=== PATIENT | male | born 1970 | race African-American/Black ===

== ENCOUNTER 2017-04-18 16:15 | Inpatient (IN) | payer MEDICAID ==
[~2017-04-18] VITALS: Ht 185.4 cm; Wt 86.2 kg
[~2017-04-18 16:15] MED LIST: ACETAMINOPHEN-1 EAC1 PO; AMLODIPINE; AMLODIPINE BESY10 MG PO; AMLODIPINE PO; ASPIRIN EC81 M1 PO; ASPIRIN81 M2 PO; BIOFREEZE118 ML TP; BYSTOLIC 5 MG5 M1 PO; BYSTOLIC20 MG; CARISOPRODOL 3350 MG PO; CARVEDILOL25 MG PO; COREG25 MG PO; Coreg PO; FLEXERIL PO; HYDRALAZINE 10M10 MG PO; HYDRALAZINE 5050 M1 PO; HYDROCHLOROTH12.5 MG; HYDROCHLOROTHIA25 M1; HYDROCHLOROTHIA25 M1 PO; K-DUR 20 MEQ T20 MEQ PO; KEPPRA 500 MG500 M1 PO; LIDOCAINE VISC100 M1 SWISH&SPIT; LIDODERM 5%1 PATC1 TRANSDERM; LIPITOR 20 MG T20 M1 PO; LISINOPRIL40 MG; LISINOPRIL40 MG PO; LOPERAMIDE 2 MG2 M1 PO; MAGNESIUM400 MG PO; MAXZIDE 75-501 EACH PO; MODAFINIL100 MG PO; NAPROSYN500 MG PO; NEURONTIN600 MG PO; NEXIUM40 MG PO; NORCO 5-325 TA1 EACH PO; NORVASC10 MG PO; PENICILLIN V P500 MG PO; PERCOCET 5-3251 EACH PO; PERCOCET PO; POTASSIUM20 PO; PROCARDIA XL30 MG; ROBAXIN500 MG PO; TEKTURNA HCT 31 EAC1 PO; TYLENOL EXTRA500 MG PO; ZESTORETIC PO; [UNRECOGNIZED DRUG - REMARK]
[2017-04-18] MEDS ORDERED: NEXIUM40 MG PO (19:44)
[2017-04-18 20:00] VITALS: BP 156/93
--- NOTE | 2017-04-19 00:51 | NUR ---
PT ARRIVED ON UNIT AT 1850. VERBAL REPORT TAKEN FROM 3W RN AT SHIFT CHANGE. KERLIX DRESSING TO LEFT UPPER ARM WAS CHANGED JUST PRIOR TO ADMISSION. PT HAS BLISTERS TO LEFT UPPER ARM FROM FALL SUSTAINED AT HOME. PT ADMITTED WITH DX OF RHABDOMOLOSIS. A/O X 4. TOOK MEDS WHOLE ALL AT ONCE WITH WATER. REHAB/ADMISSION TOOL COMPLETED. VOIDS CLEAR/LIGHT YELLOW URINE PER URINAL. DENIES PAIN. DIDN'T WANT TO TAKE SCHEDULED TYLENOL. PT WAS GIVEN A PEROCET JUST PRIOR TO ADMISSION FOR C/O LEFT SIDE PAIN. PT IS LEFT HANDED BUT WRITES WITH HIS RIGHT HAND. PT HAS LEFT HEMIPARESIS FROM A STROKE IN 2016. PT HAS A TENDENCY TO LEAN TO THE RIGHT WHILE LAYING IN BED. 2+ EDEMA NOTED TO LEFT ARM. LEFT ARM ELEVATED ON A PILLOW. A PILLOW PLACED TO RIGHT SIDE TO KEEP PT FROM LEANING. PT C/O SKIN ITCHING AND REQUESTED TO BE CLEANED UP. CANDY BUTCHER GAVE PT A BED BATH AND APPLIED LOTION.
[2017-04-19 04:14] LABS: HEMATOCRIT 33.1 % (42.0-52.0); MCH 30.7 pg (26.0-34.0); MCHC 33.1 g/dL (28.0-37.0); MCV 92.8 fL (80.0-100.0); RBC 3.57 mil/uL (4.50-6.00); RDW-CV 13.4 % (10.5-14.5); WBC 5.6 thou/uL (4.0-11.0)
[2017-04-19 04:18] LABS: CALCIUM 8.1 mg/dL (8.5-10.1); CREATININE 1.3 mg/dL (0.6-1.3); POTASSIUM 3.5 mmol/L (3.5-5.1)
--- NOTE | 2017-04-19 05:17 | NUR ---
USED URINAL X ONE DURING THE NIGHT. RESTED SOUNDLY ALL NIGHT. NO COMPLAINTS VOICED. HOURLY ROUNDING IN PROGRESS. CALL LIGHT WITH REACH.
[2017-04-19 08:15] VITALS: BP 125/80
[2017-04-19 11:29] VITALS: BP 99/64
--- NOTE | 2017-04-19 12:55 | NUR ---
Nutrition: Pt admitted to Rehab with [facility]. H/o HTN, CVA. Wound care for Lt arm.Regular diet, eating >50% of meals, average >75%. Wt in 190s. BG 138, alb 2.6, prealb 18.7. RX: lisinopirl, carvedilol, aspirin. Low risk. will follow pt weekly.
[2017-04-19 13:45] VITALS: BP 105/66
--- NOTE | 2017-04-19 16:32 | NUR ---
SW met with pt to complete initial assessment, introduce self, and SW role on rehab unit. Pt sister present in the room; she plans to return to [place] tomorrow. Pt alert and oriented. Pt lives at home with his mother and his goal is to return home. Pt also has other family support. Pt has a cane. SW to continue to follow to assist with safe dc planning. SW provided welcome packet and consent form; pt was eating at the time and wanted to sign tomorrow. SW to review team conference summary with pt tomorrow after team.
[2017-04-19 17:00] VITALS: BP 102/65
--- NOTE | 2017-04-19 17:51 | NUR ---
ASSUMMED CARE OF PT AT 0730, PT ALERT AND ORIENTED, PT TRANSFERS WITH ASSIST OF 1, GB QUAD CANE, VERY SLOW TO MOVE, CUEING NEEDED, PT VOIDS PER URINAL, PT COMPLAINS OF PAIN IN LEFT SHOULDER, LIDOCAINE PATCH APPLIED, PT DENIED NEED FOR FURTHER MEDICATION, PT TAKING FOOD AND FLUIDS WELL, PT HAS SOME EDEMA IN LEFT ARM, ULTRASOUND DONE TO LEFT ARM WITH NEGATIVE RESULTS, ENCOURAGED PT TO ELEVATE ARM, SLING TO ARM WHEN UP, PT COMPLAINED OF DIZZINESS WITH THERAPY AT 1100, BP 99/64, PULSE 64, PT ALSO COMPLAINED OF SLIGHT NAUSEA, BUT ABLE TO TOLERATE LUNCH WELL, BP RECHECKED THIS PM AND BP REMAINS LOW AT 102/65, PULSE 69, PHYSICIAN CALLED AND ORDER OBTAINED TO HOLD 1700 AND 1830 BP MEDS FOR TONIGHT. DRESSING CHANGED TO LEFT ARM, LARGE FLUID FILLED BLISTER NOTED WELL SEVERAL DRIED BLISTERS, PT HAS FLAT AFFECT, DOES NOT OFFER CONVERSATION BUT DOES ANSWER QUESTIONS, COMPLAINS OF FATIGUE, PARTICIPATED IN ALL THERAPIES, HOURLY ROUNDING COMPLETED, ASSESSMENT COMPLETED, WILL CONTINUE TO MONITER.
[2017-04-19 19:45] VITALS: BP 104/63
--- NOTE | 2017-04-19 20:45 | NUR ---
AWAKENED FOR HS REASSESSMENT AND MED PASS. NO COMPLAINTS VOICED. TOOK MEDS WHOLE ALL AT ONCE WITH WATER. URINAL AND CALL LIGHT WITHIN REACH.
--- NOTE | 2017-04-20 05:15 | NUR ---
SISTER AND DAUGHTER VISITED LAST NIGHT FOR AWHILE. RESTED QUIETLY. NO C/O DISCOMFORT. HOURLY ROUNDING IN PROGRESS.
[2017-04-20 06:16] VITALS: BP 139/80
[2017-04-20 07:15] VITALS: BP 144/79
--- NOTE | 2017-04-20 07:15 | NUR ---
CHANGE OF SHIFT REPORT ASSUMED PATIENT CARE
--- NOTE | 2017-04-20 10:30 | NUR ---
patient with c/o nausea and feels hot at end of pt session bp 118/[address] kelley notified of patients status and order for antimetic and given to patient will continue to monitor
--- NOTE | 2017-04-20 18:30 | NUR ---
patient sitting up wc watching tv c/o l shoulder pain today treated and relieved with oxycodone poor appetite today ate less then 50% of meals flat affect and minimal eyecontact in first half of day, did improve with time spent today up with 1 assist to chair and bed l side weak,lue flaccid in immobilizer,lle weak with brace lue drsg changed today last bm yesterday call light in reach and instruction given
[2017-04-20 20:58] VITALS: BP 123/76
--- NOTE | 2017-04-21 03:15 | NUR ---
ASSUMED CARE @ 1929-04/20-TUE.SITS IN RECLINER WATCHING TV.BRACE IN PLACE LEFT LE.SLING NOT IN USE @ THIS TIME FOR LEFT UE.CHAIR ALARM ALREADY ON @ 1929. GAUZE DRESSING INTACT LEFT UPPER ARM.EDEMA-LEFT UE.LEFT UE-FLACCID& WEAK-LEFT LE FROM OLD STROKE.ON SCHEDULED TYLENOL Q 6 HOURS.ASSISTED TO BED W/ GB & QUAD CANE @ 1944.HOB UP WHEN IN BED.LUE UP ON A PILLOW & HEELS OFF BED BOTH @ 1944. BED ALARM PUT ON @ 1944.NURSE EMPTIES URINAL @ NIGHT.SEE POSITION CHANGE CHARTING.ON HOURLY ROUNDS.CHOPPER OPERATOR DOING ODD HOUR ROUNDS.AWAKENED ONLY TO TURN.
--- NOTE | 2017-04-21 05:29 | NUR ---
SLEEPING SINCE 2229.USED URINAL X3.NURSE EMPTIES URINAL.TOOK ALL ORANGE SHERBET & ORANGE JUICE X2 HS SNACKS.NO NAUSEA DURING NIGHT.REFUSED TYLENOL DUE @ 0400.REFUSED ALSO TO TURN @ 0400.
[2017-04-21 06:35] VITALS: BP 136/82
[2017-04-21 07:37] VITALS: BP 136/78
--- NOTE | 2017-04-21 10:20 | NUR ---
ASSUMED CARE OF PT THIS AM AROUND 714- UPON ASSESSMENT PT NOTED TO BE RESTING IN BED, EYES CLOSED- EASILY ARROUSABLE-PT SEEMS TO BE WITHDRAWN, WITH FLAT AFFECT- ZOLOFT CONTINUED THIS SHIFT INDICATED- PT A&O X4- CONTINENT OF BOWEL AND BLADDER- ASSIST X1 WITH QUAD CAN FOR TRANSFERS- LEFT UE FLACID, WITH LIMITED EMBALMER/FUNERAL DIRECTOR NOTED- LEFT LE WEAK- LCTA, DIMINISHED IN BASES, RESP EVEN AND UN-LABORED- VSS- ABDOMEN SOFT/ROUND/NON-TENDER, BS X4 QUADS- LAST BM REPORTED 04/18, SCHEDULED COLACE GIVEN THIS AM PRESCRIBED- FAIR PO INTAKE NOTED WITH BREAKFAST- DRESSING TO LEFT UE REPORTED TO HAVE BEEN CHANGED ON PRIOR SHIFT, DRESSING REMAINS INTACT WITH NO VISIBLE DRAINAGE NOTED-SCHEDULED TYLENOL PRESCRIBED- LIDODERM PATCH TO LEFT SHOULDER THIS AM PRESCRIBED- TRACE EDEMA NOTED TO BLE, LEG ELEVATION PER PILLOW WHILE AT REST-PT UP WORKING WITH THERAPIES PRESCRIBED THIS AM, TOLERATING WELL- PT DENIES ANY C/O PAIN/DISCOMFORT AT THIS TIME- CALL LIGHT AND PERSONAL BELONGINGS WITH IN REACH- HOURLY ROUNDS IN PLACE R/T SAFETY/NEEDS- ALL NEEDS MET AT THIS TIME-[facility]
[2017-04-21 13:04] VITALS: BP 107/70
--- NOTE | 2017-04-21 15:25 | NUR ---
SW met with pt and pt aunt to review team conference summary. Plan for pt to continue therapies on the rehab unit at least another week and team will reassess pt length of stay during team conference on Friday 04/27. Pt and pt aunt in agreement with plan. SW to continue to follow to assist with safe dc planning.
--- NOTE | 2017-04-21 15:51 | NUR ---
PT LYLALTY RESTING IN W/C AT BEDSIDE, WATCHING TV- CALL LIGHT AND PERSONAL BELONGINGS WITH IN REACH- PT ACTIVE IN THERAPIES THIS SHIFT PRESCRIBED- POST THERAPY IN AM PT NOTED TO C/O DIZZINESS/CLAMMINESS/NAUSEA-BP NOTED TO BE 97/56, BS NOTED TO BE 112-ZOFRAN GIVEN FRO NAUSEA AT 1105- PT NOTED TO HAVE HAD SEVERAL BP MEDS IN AM, BP MONITORED- PT BP RECHECKED AT 1302 AND NOTED TO BE 107/70 HR 54- NOTIFIED OF LOW BP AND ASSESSMENT FINDINGS AND COMPLAINTS THIS AM- NEW ORDERS GIVEN TO D/C HYDRALAZINE AND BYSTOLIC AND CHANGE COREG, NORVASC, AND LISINOPRIL FROM BID TO DAILY (NOTED AND FAXED)- PT IN DINNING ROOM FOR LUNCH, WITH 0% INTAKE NOTED- PT AUNT HERE THIS AFTERNOON AND BROUGHT CHEESE CAKE, PT NOTED TO EAT WITH NO PROBLEMS- PT C/O PAIN X1 TO LEFT SIDE, SCHEDULED TYLENOPL GIVEN PRESCRIBED- PT REPORTS MEDICATION TO BE EFFECTIVE- PT CHECKED ON FREQUENTLY R/T SAFETY/NEEDS- SLOWLY ADVANCING TOWARDS GOALS- ALL NEEDS MET AT THIS TIME-[facility]
--- NOTE | 2017-04-21 19:30 | NUR ---
AWAKENED FOR HS REASSESSMENT AND MED PASS. TOOK MEDS WHOLE ALL AT ONCE WITH WATER. DECLINED OFFER OF A SNACK. LEFT UPPER ARM KERLIX DRESSING DRY/INTACT. URINAL AND CALL LIGHT WITHIN REACH.
[2017-04-21 20:28] VITALS: BP 141/83
--- NOTE | 2017-04-22 05:14 | NUR ---
PERCOCET GIVEN AT 0100 FOR C/O LEFT SHOULDER PAIN WITH RELIEF. USED URINAL X 2 DURING THE NIGHT. HOURLY ROUNDING IN PROGRESS.
[2017-04-22 07:30] VITALS: BP 126/79
--- NOTE | 2017-04-22 11:59 | NUR ---
WOUND CARE NOTE: CONSULT RECEIVED TO REEVALUATE LUE WOUNDS/ DRESSING CHANGE RECOMMENDATIONS. ALL 4 BLISTERS HAVE RUPTURED AND SKIN IS SLOUGHING OFF. CLEANSED WITH WOUND CLEANSER, PATTED DRY. MOIST, PINK WOUND BED TO MEDIAL AND ANTERIOR WOUND. LATERAL WOUND IS DRY. APPLIED VASELINE GAUZE TO ALL WOUNDS AND COVERED WITH 4X4. SECURED WITH ROLL GAUZE. EDUCATED PATIENT ON WOUND FINDINGS, COMMUNICATED UNDERSTANDING. WOUNDS ARE HEALING AND LOOKING WELL. EDUCATED PATIENT ON IMPORTANCE OF NUTRITION FOR WOUND HEALING, COMMUNICATED UNDERSTANDING. RECOMMEND DAILY DRESSING CHANGES ENCOURAGE GOOD NUTRITION AND HYDRATION
[2017-04-22 20:50] VITALS: BP 132/78
--- NOTE | 2017-04-23 01:49 | NUR ---
ASSUMED CARE @ 1934-04/22-TUE.SITS IN RECLINER WATCHING TV W/ LE'S UP.BRACE IN PLACE LEFT FOOT.DOES NOT WEAR SLING LUE @ THIS TIME.CHAIR ALARM ALREADY ON @ 1934.DRSG LUE INTACT.LUE-FLACCID.WEAK-LEFT LE.LIFTING ASSIST FROM RECLINER FOR TRANSFER.EDEMA-LEFT UPPER EXTREMITY & ELEVATED ON A PILLOW WHILE IN BED. ASSISTED TO BED W/ 1 PERSON W/ GB & QUAD CANE @ 2119.HOB UP.HEELS OFF BED & LUE UP BOTH @ 2124.BED ALARM PUT ON @ 2124.URINAL W/IN REACH.SEE POSITION CHANGE CHARTING.AWAKENED ONLY TO TURN.ON HOURLY ROUNDS.NAPKIN BAND WRAPPER DOING ODD HOUR ROUNDS.
--- NOTE | 2017-04-23 05:32 | NUR ---
SLEEPING SINCE 2154.AWAKENED ONLY TO TURN @ 0030 & 0330.BUT REFUSED TO TURN @ 0330.USED URINAL X1 ONLY.NURSE JUST EMPTIES URINAL @ NIGHT.TOOK ALL ORANGE JUICE X2 & 2 PAPACKAGES VAISHALI CRACKERS HS SNACKS.
[2017-04-23 08:00] VITALS: BP 138/76
--- NOTE | 2017-04-23 16:47 | NUR ---
pt has participated with therapies and calls for assist to bathroom with quad cane,gaitbelt and min assist of 1 with slow steady gait. pt wears sling to lt flaccid arm and afo to lt foot. pt is alert but can be forgetfull. bed and chair alarms in use. prn for pain to lt side of body with good effect. pt has fair appetite and has eaten peanut and jelly sandwich and meal brought in by family member this evening. pt is alert and orientated to situation and able to voice needs. pt progresses towards goals and hourly rounding continues.
[2017-04-23 20:24] VITALS: BP 144/79
--- NOTE | 2017-04-24 01:39 | NUR ---
ASSUMED CARE @ 1939-04/23-SAT.APPEARS SLEEPING ON HIS BACK W/ HOB UP.BED ALARM ALREADY ON @ 1939.AWAKENED FOR HS MEDS @ 2054.PERSPIRING.ROOM TEMP MADE COOLER.TEMP @ 2023-.3 ORAL.TEMP RE-CHECKED @ .3 ORAL.LUE UP ON A PILLOW.EDEMA-LUE.HEELS OFF BED @ 2114.LUE-FLACCID.WEAK-LEFT LE.SEE POSITION CHANGE CHARTING.NURSE EMPTIES URINAL @ NIGHT.AWAKENED ONLY TO TURN @ 0050. ON HOURLY ROUNDS.SCRAP PICKER DOING ODD HOUR ROUNDS.
--- NOTE | 2017-04-24 05:32 | NUR ---
SLEEPING SINCE 1940.AWAKENED FOR HS MEDS & TO TURN.REMAINED AWAKE @ 2200-WATCHING TV.THEN ,SLEEPING @ 0000-04/24-TUESDAY.REFUSED TO TURN @ 0400 & TO TAKE SCHEDULED TYLENOL ES @ 0400.USED URINAL X3.TOOK ORANGE JUICE X2 & 2 PACKAGES VAISHALI CRACKERS HS SNACKS.
[2017-04-24 08:01] VITALS: BP 146/84
--- NOTE | 2017-04-24 16:00 | NUR ---
PT UP TO CHAIR AT LUNCH TIME WITH ENCOURAGEMENT. PT INFORMED OF EXPECTATIONS WHILE ON REHAB UNIT. PT C/O BACK PAIN THIS AM WITH TYLENOL GIVEN WITH FAIR EFFECT.PT HAS EXPRESSED FEAR OF FALLING AGAIN WHEN AT HOME AND IS REMINDED OF EXPECTATION THAT PT WILL DO WELL WITH THERAPY HE HAD DONE LAST YEAR AFTER STROKE. DRESSINGS TO LT UPPER ARM CHANGED WITH PICTURES TAKEN AND PLACED ON CHART. AREAS APPEAR TO BE HEALING WELL. PT VOIDS USING URINAL AND IS AGAIN REMINDED TO AMBULATE TO BATHROOM WITH STAFF TO INCREASE ENDURANCE.PT TOLERATES MEALS AND IS ABLE TO FEED SELF AFTER MEAT CUT AND CARTONS OPENED, GOOD APPETITE.PT PROGRESSES TOWARDS GOALS WITH ENCOURAGEMENT AND HOURLY ROUNDING CONTINUE.
[2017-04-24 19:45] VITALS: BP 122/80
--- NOTE | 2017-04-25 01:11 | NUR ---
ASSUMED CARE @ 1937-04/24-TUESDAY.AWAKE IN BED ON HIS BACK W/ HOB UP WATCHING BALL GAME IN TV.BED ALARM PUT ON @ 1937.SLING NOT IN USE FOR LEFT UE WHILE IN BED.LUE ELEVATED ON PILLOW @ 2044.STILL HAS EDEMA-LEFT UE/.HEELS OFF BED ALSO @ 2049.SEE POSITION CHANGE CHARTING.AWAKENED ONLY TO TURN.INC LARGE AMOUNT URINE @ 29.DID OWN DEIRDRE CARE.GOWN & UNDERWEAR BOTH CHANGED.USUALLY VOIDS IN URINAL @ NIGHT.NURSE JUST EMPTIES URINAL @ NIGHT.ON HOURLY ROUNDS.CARD RUNNER DOING ODD HOUR ROUNDS.
--- NOTE | 2017-04-25 05:56 | NUR ---
SLEEPING SINCE 2146.AWAKENED ONLY TO TURN @ 0030 & 0330.BUT PREFERS TO STAY ON SAME SIDE-RIGHT @ 0330.REFUSED 0400 DOSE TYLENOL ES.USED URINAL X2.INC.URINE X1.URINE ACCIDENT X1.TOOK ALL ORANGE JUICE X2 & 2 PACKAGES VAISHALI CRACKERS HS SNACKS.
--- NOTE | 2017-04-25 06:46 | NUR ---
PER 3RD PRESSMAN-PATIENT CALLED @ 0549 REQUESTING TO TURN & WAS TURNED BY 3RD PRESSMAN TO LEFT SIDE.POSITIONED ON HIS BACK W/ HOB UP @ 0630 SO CAN TAKE 0600 AM MEDS.
[2017-04-25 07:30] VITALS: BP 131/89
--- NOTE | 2017-04-25 16:31 | NUR ---
PT PARTICIPATES IN ALL THERAPIES. PT WITH FLAT AFFECT. STATES "NO ONE HAS CALLED ME OR VISITED ME. I HAVE NO FRIENDS." ATTEMPT TO ENGAGE PT IN CONVERSATION. PT ATTEMPT TO HAVE BM BUT NOT SUCCESSFUL DESPITE MEDS BEING GIVEN MEDS.PT FREQUENTLY NOT EATING MEALS AND CALLING FOR PEANUT BUTTER AND JELLY AFTER MEAL TIMES. PT VOIDING PER URINAL. PAIN WELL CONTROLLED WITH PO MEDS
[2017-04-25 20:00] VITALS: BP 151/88
--- NOTE | 2017-04-26 05:32 | NUR ---
ASSUMED CARES AT 1920. PT ALERT AND ORIENTED. PLEASANT BUT SEEMS DEPRESSED. TYLENOL GIVEN FOR LEFT SIDE PAIN. LUE IS FLACCID AND DRESSING INTACT. HAS AFO BRACE TO LLE WHEN UP. HE IS A MIN ASSIST WITH GAIT BELT AND QUAD CANE. UNSTEADY. PT USED URINAL DURING THE NIGHT AND RN EMPTIED. DID SPILL URINAL X 1 AND NEEDED ASSIST WITH CHANGING. PT DOES STATE THAT HAS URINARY HESITANCY. PT DECLINED ANY NEED FOR ADDITIONAL LAXATIVE TONIGHT. USED CALL LIGHT APPROPRIATELY. BED ALARM ON.
[2017-04-26 08:03] VITALS: BP 148/85
--- NOTE | 2017-04-26 18:29 | NUR ---
PAIN MANAGED WITH ORDERED PAIN MEDS. PT UP WTIH MIN ASSIST USING GAIT BELT AND QUAD CANE. PT ABLE TO MAKE NEEDS KNOWN, CALL LIGHT IN REACH
[2017-04-26 21:00] VITALS: BP 140/76
--- NOTE | 2017-04-26 21:00 | NUR ---
AMBULATED TO THE BATHROOM EARLIER WITH SBA, GAITBELT, CANE. PT STATES HAD A BM. NOT OBSERVED. PT ALREADY FLUSHED THE TOILET. PT DID OWN DEIRDRE CARE AND CLOTHING ADJUSTMENT WITH SBA. DENIES DISCOMFORT. TOOK MEDS WHOLE ALL AT ONCE WITH WATER. DECLINED OFFER OF A SNACK.
--- NOTE | 2017-04-27 05:28 | NUR ---
RESTED QUIETLY UNTIL THIS AM. GAVE PERCOCET AT 0443 FOR C/O BACK AND LEFT ARM PAIN WITH RELIEF. ASSISTED WITH REPOSITIONING TO SIDE AND ELEVATED LEFT ARM ON A PILLOW. USED URINAL X 2 DURING THE NIGHT. HOURLY ROUNDING IN PROGRESS.
[2017-04-27 07:45] VITALS: BP 137/77
--- NOTE | 2017-04-27 16:55 | NUR ---
SW reviewed team conference summary with pt. Plan for pt to remain on rehab unit and for team to reassess pt length of stay during team conference on Friday 05/04. Pt in agreement with plan. SW provided emotional support and encouragement to continue to make progress in therapy. SW to continue to follow to assist with safe dc planning. SW will follow up to review with pt family as well.
--- NOTE | 2017-04-27 18:45 | NUR ---
ASSUMED CARE AT 0730 PATIENT ALERT/ORIENTED, PAIN MED GIVEN X1 FOR LEFT UPPER/LOWER EXTREMITY PAIN, UP WITH ASSIST OF ONE AND QUAD CANE, PARTICIPATED IN ALL THERAPIES TODAY, HOURLY ROUNDING COMPLETED, CALL LIGHT IN REACH, BED/CHAIR ALARMS IN PLACE, TO DINING ROOM FOR MEALS. DRESSING TO LEFT ARM CHANGED, HEALING. CONTINUE WITH CURRENT PLAN OF CARE
[2017-04-27 20:29] VITALS: BP 123/75
--- NOTE | 2017-04-28 02:10 | NUR ---
ASSUMED CARE @ 1956-04/27-TUE.SITS IN RECLINER SLEEPING W/ LE'S UP.CHAIR ALARM ALREADY ON @ 1956.BRACE IN PLACE LEFT FOOT.SLING IN PLACE LEFT UE.AWAKE ALREADY @ 2047.SEE PAIN MANAGEMENT @ 2100.HOB UP IN BED.LUE UP ON A PILLOW. 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
--- NOTE | 2017-04-28 05:47 | NUR ---
SLEEPING SINCE 1956.REFUSED HS SNACK.USED URINAL X3.REFUSED TO TURN @ 0340. PREFERS TO STAY ON HIS RIGHT SIDE.BUT CALLED @ 0535 TO BE REPOSITIONED ON HIS BACK.NURSE EMPTIES URINAL @ NIGHT.NO URINE ACCIDENTS.
[2017-04-28 08:18] VITALS: BP 147/89
--- NOTE | 2017-04-28 17:54 | NUR ---
ASSUMED CARE AT 0730 PATIENT ALERT/ORIENTED, PAIN MED GIVEN AT 1230 WITH GOOD RELIEF, UP WITH ASSIST OF ONE AND QUAD CANE/GAIT BELT, HOURLY ROUNDING COMPLETED, CALL LIGHT IN REACH, BED/CHAIR ALARMS IN PLACE. PARTICIPATED IN ALL THERAPIES TODAY. CONTINUE WITH CURRENT PLAN OF CARE
[2017-04-28 20:55] VITALS: BP 126/81
--- NOTE | 2017-04-29 04:44 | NUR ---
ASSUMED PATIENT CARE AT APPROX 1900. PATIENT ALERT AND ORIENTED TIMES FOUR. ABLE TO TRANSFER WITH MOD ASSISST OF ONE, QUAD CANE AND GAIT BELT TO BED, FORM CHAIR. MANAGES BLADDER INDEPENDENTLY WITH THE USE OF A URINAL. MINOR COMPLAINTS OF PAIN IN LEFT SIDE. MANAGED WITH MEDICATION. DRESSING O LEFT UPPER EXTREMITY IS C/D/I AT THIS TIME. ABLE TO SLEEP THROUGH MOST OF THE NIGHT, ONLY CALLING OUT FOR EMPTYING OF HIS URINAL.
[2017-04-29 08:00] VITALS: BP 141/83
--- NOTE | 2017-04-29 18:44 | NUR ---
PT CARE ASSUMED AT 0730, ASSESSMENT AND VITAL SIGNS COMPLETED DOCUMENTED. PT HAS BEEN COOPERATIVE WITH ALL THERAPIES TODAY. MIRALAX HAS BEEN ADDED TO BOWEL REGIME. FALL PRECAUTIONS AND HOURLY ROUNDING IN PLACE.
[2017-04-29 20:30] VITALS: BP 154/87
--- NOTE | 2017-04-29 20:45 | NUR ---
SITTING UP IN RECLINER ASLEEP. AWAKENED FOR HS REASSESSMENT AND MED PASS. DENIES DISCOMFORT AND/OR NEED FOR PAIN MED. TOOK MEDS WHOLE ALL AT ONCE WITH WATER. DECLINED OFFER OF A SNACK.
--- NOTE | 2017-04-30 05:53 | NUR ---
RESTED QUIETLY UNTIL ABOUT 0500 AT WHICH TIME USED THE URINAL AND THEN WATCHED TV FOR AWHILE. CURRENTLY SLEEPING. HOURLY ROUNDING IN PROGRESS.
[2017-04-30 08:01] VITALS: BP 143/76
--- NOTE | 2017-04-30 10:11 | NUR ---
AM ASSESSMENT AND VITAL SIGNS COMPLETED DOCUMENTED. PT HAS WORKED WITH PT AND OT THIS AM, CONTINUES TO PROGRESS TOWARD DISCHARGE GOALS. PRN ACETAMINOPHEN GIVEN FOR LEFT ARM PAIN PRIOR TO THERAPY. FALL PRECAUTIONS AND HOURLY ROUNDING CONTINUE.
--- NOTE | 2017-04-30 18:11 | NUR ---
PT REMAINS STABLE AND WITHOUT COMPLAINTS.
[2017-04-30 19:40] VITALS: BP 140/77
--- NOTE | 2017-04-30 19:40 | NUR ---
SITTING UP IN RECLINER ASLEEPING. AWAKENED FOR HS REASSESSMENT AND VITAL SIGNS. LEGS ELEVATED. NO COMPLAINTS VOICED.
--- NOTE | 2017-05-01 06:24 | NUR ---
PT SLEPT IN THE RECLINER UNTIL ABOUT 0230 PER CHOICE. THEN PT WENT TO BED. TRANSFERS WITH SBA, GAITBELT, QUAD CANE. DR. STANLEY ROUNDED HIS AM. NO FURTHER C/O PAIN. HOURLY ROUNDING COMPLETED.
[2017-05-01 08:05] VITALS: BP 152/78
--- NOTE | 2017-05-01 18:52 | NUR ---
ASSUMED CARE OF PATIENT AFTER MORNING REPORT. ALERT AND ORIENTED X4. ASSESSMENT COMPLETED AND IS CHARTED. VSS ON ROOM AIR. PATIENT RESTED COMFORTABLY IN HIS ROOM TODAY. PATIENT HAD A SHOWER JUST BEFORE DINNER. PATIENT HAS HAD NO COMPLAINTS OF NAUSEA OR PAIN THIS SHIFT. HOURLY ROUNDS HAVE BEEN MAINTAINED. CALL LIGHT IS WITHIN REACH. NURSING WILL CONTINUE TO MONITOR.
[2017-05-01 19:55] VITALS: BP 161/94
--- NOTE | 2017-05-01 19:55 | NUR ---
SITTING UP IN RECLINER WATCHING TV. STATES HIS STOMACH DOESN'T FEEL GOOD. DENIED NAUSEA. ALSO C/O HEADACHE AND LEFT ARM PAIN. PAIN MED GIVEN. TOOK MEDS WHOLE ALL AT ONCE WITH WATER. TRANSFERS WITH SBA AND QUAD CANE.
--- NOTE | 2017-05-02 05:29 | NUR ---
RESTED QUIETLY. NO FURTHER C/O PAIN. USED URINAL X 3 DURING THE NIGHT. HOURLY ROUNDING IN PROGRESS.
[2017-05-02 07:40] VITALS: BP 147/83
--- NOTE | 2017-05-02 18:14 | NUR ---
ASSUMED CARE AT 1100 ALERT ORIENTED PLEASANT AND COOPERATIVE. HX OF OLD CVA AND RHABDOMYOLOSIS. TRANSFERS WITH SBA G BELT AND CANE AND AMBULATES TO BR TO VOID NEEDS SOME ASSIST TO ADJUST CLOTHING DUE TO WEAKNESS OLD CVA RESIDUAL. USES CALL LIGHT APPROPRIATELY FOR ASSIST. UP TO W/C TO DO SPONGE BATH AFTER LUNCH WITH SOME ASSISTANCE. DENIES PAIN OR REQUESTS. HAS HAD FAMILY VISITING AND FOOD BROUGHT IN BY FAMILY. ISSUES WITH CONSTIPATION TODAY BISACODYL R SUPPOSITORY GIVEN WITH GOOD RESULTS LARGE SOFT BM. CHILDREN VISITING ALSO WITH PT. FEEDS SELF AND TAKES MEDS WITHOUT DIFFICULTY. UP IN RECLINER MUCH OF AFTERNOON VISITING WITH FAMILY.
[2017-05-02 19:45] VITALS: BP 157/84
--- NOTE | 2017-05-03 02:17 | NUR ---
ASSUMED CARE @ 1939-05/02-TUESDAY.SITS IN RECLINER W/LE'S UP.WATCHING TV.BRACE & SLING BOTH OFF @ THIS TIME.THREE SMALL CHILDREN VISITING @ 1939 W/ PT'S MOM & AUNT.LEFT UPPER ARM BLISTERS-DRY & KASSY.AMBULATED TO/FROM TOILET W/ GB & QUAD CANE W/ RN ASSISTING.USED URINAL WHILE IN TOILET BUT PASSED GAS ONLY. THEN,ASSISTED TO BED @ 2144.HOB UP.LEFT UE UP ON A PILLOW @ 2114.HEELS OFF BED.BED ALARM PUT ON @ 2114.SEE POSITION CHANGE CHARTING.NURSE EMPTIES URINAL @ NIGHT.ON HOURLY ROUNDS.
--- NOTE | 2017-05-03 05:38 | NUR ---
BRP W/ASSIST X1.USED URINAL X2.TOOK ONLY PATEL COATED MELISSA.CANDIES HS SNACK W/ H20.AWAKENED ONLY TO TURN @ 0435 BUT REFUSED TO TURN @ THIS TIME.
[2017-05-03 07:50] VITALS: BP 149/80
--- NOTE | 2017-05-03 15:56 | NUR ---
PT HAS PARTICIPATED WITH THERAPIES AND CALLS FOR ASSIST WITH TRANSFERRS AND TO AMBULATE TO BATHROOM. PT GIVEN DULCOLOX SUPP THIS AM PER REQUEST WITH GOOD EFFECT. PT DENIES PAIN AND WEARS SLING TO FLACCID LT ARM. PT AMBULATES WITH SLOW STEADY GAIT AND USE OF CANE,GAITBELT AND MIN ASSIST OF 1. PT VOIDS WELL PER URINAL OR BRP. PT HAS FLAT AFFECT BUT PLESANT AND APPROPIATE. PT CONTINUES TO PROGRESS TOWARDS GOALS AND HOURLY ROUNDING CONTINUES.
[2017-05-03 20:01] VITALS: BP 146/89
--- NOTE | 2017-05-04 01:19 | NUR ---
ASSUMED CARE @ 1929-05/03-.SITS IN RECLINER BY WINDOW W/ LE'S UP.BRACE IN PLACE LEFT FOOT.SLING IN PLACE LUE.REQUESTED WARM BLANKETS X2 & APPLIED. SEE PAIN MANAGEMENT @ 2023.UNIFORM DESIGNER ASSISTED PATIENT TO BED @ 2029.LUE UP & HEELS OFF BED @ 2029.BED ALARM PUT ON @ 2029.SEE POSITION CHANGE CHARTING.INC URINE @ 0030.DOES OWN DEIRDRE CARE.WEARS PULL UPS.CALLED @ 0115 TO BE PLACED ON HIS BACK FROM RIGHT SIDE.ASSISTED BY UNIFORM DESIGNER.ON HOURLY ROUNDS.UNIFORM DESIGNER DOING ODD HOUR ROUNDS.
--- NOTE | 2017-05-04 05:31 | NUR ---
SLEEPING SINCE 2199.USED URINAL X3.INC URINE X1 W/ URINE ACCIDENT X1.NURSE EMPTIES URINAL @ NIGHT.REFUSED HS SNACK BUT REQUESTED ORANGE JUICE X1 @ 0430.
[2017-05-04 07:39] VITALS: BP 174/95
--- NOTE | 2017-05-04 15:55 | NUR ---
ASSUMED CARE AT 0730 PATIENT ALERT/ORIENTED, PAIN MEDS GIVEN X1 THIS SHIFT WITH FAIR RELIEF. UP WITH ASSIST OF ONE AND QUAD CANE/GAIT BELT, PARTICIPATED IN ALL THERAPIES TODAY, TO DINING ROOM FOR MEALS, HOURLY ROUNDING COMPLETED, BED/CHAIR ALARMS IN PLACE, CALL LIGHT IN REACH, TEAM MEETING WITH RETEAM AND GOAL TO HOME, CONTINUE WITH CURRENT PLAN OF CARE
--- NOTE | 2017-05-04 17:05 | NUR ---
SW reviewed team conference summary with pt. Plan for pt to remain on rehab to continue therapies and for team to reassess pt length of stay during next team conference. Pt in agreement with plan and says that he is in no hurry to dc. Pt says that he wants to be careful and be ready to be able to dc. Pt mother to dc from [place] on 05/10. Possibility for pt to dc 05/11 or 05/12. Pending safest dc plan and pt choice. SW to discuss with team, pt, pt family on dc plan being arranged either home with support or to LTC facility.
[2017-05-04 20:26] VITALS: BP 147/92
--- NOTE | 2017-05-05 01:46 | NUR ---
ASSUMED CARE @ 1934-.SITS IN RECLINER W/ LE'S UP WATCHING TV.CHAIR ALARM ALREADY ON @ 1934.BRACE NOT IN USE LEFT FOOT.SLING IN PLACE LEFT UE. SEE PAIN MANAGEMENT @ 2147.URINAL W/IN REACH.NURSE EMPTIES URINAL @ NIGHT. ON HOURLY ROUNDS.CHISEL GRINDER DOING ODD HOUR ROUNDS.PER PATIENT-WILL CALL IF WANTS TO GO TO BED.
--- NOTE | 2017-05-05 05:27 | NUR ---
SLEEPING SINCE 2199.SITS IN RECLINER FROM 1932 TO 314.FINALLY-CONSENTED TO GO TO BED @ 314.HOB UP.LUE & HEELS OFF BED @ 314.BED ALARM PUT ON @ 319. 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
[2017-05-05 07:40] VITALS: BP 139/82
--- NOTE | 2017-05-05 17:59 | NUR ---
PT IS ALERT AND ORIENTATED BUT CAN HAVE SLOW RESPONCES AT TIMES THINKING OF ANSWERS. PT DENIES PAIN OR NAUSEA THIS AFTERNOON BUT REPORTS LOOSE BM'S THIS AFTERNOON AND WEARS BREIFS FOR COMFORT. PT HAS PARTICIPATATED WITH THERAPIES AND AMBULATES WITH CANE,GAITBELT AND MIN ASSIST OF 1.PT CONTINUES TO PROGRESS TOWARDS GOALS AND HOURLY ROUNDING CONTINUES.
[2017-05-05 21:59] VITALS: BP 146/80
[2017-05-06 04:04] LABS: HEMOGLOBIN 12.1 gm/dL (14.0-18.0); MCH 30.1 pg (26.0-34.0); MCHC 32.7 g/dL (28.0-37.0); MCV 92.1 fL (80.0-100.0); MPV 7.6 fl. (7.2-11.1); RBC 4.02 mil/uL (4.50-6.00); WBC 5.8 thou/uL (4.0-11.0)
[2017-05-06 04:19] LABS: CALCIUM 8.6 mg/dL (8.5-10.1); CREATININE 1.2 mg/dL (0.6-1.3); POTASSIUM 3.1 mmol/L (3.5-5.1)
[2017-05-06 07:51] VITALS: BP 147/93
--- NOTE | 2017-05-06 12:19 | NUR ---
ON 05/06/17 PT WAS SEEN FOR AN ADDITIONAL 10 MINUTES OF OCCUPATIONAL THERAPY TO ACCOUNT FOR THE 10 MINUTES HE WAS NOT SEEN ON 05/05/17 DUE TO ILLNESS.
[2017-05-06 17:07] LABS: CALCIUM 8.9 mg/dL (8.5-10.1); CREATININE 1.7 mg/dL (0.6-1.3); MAGNESIUM 2.1 mg/dL (1.8-2.4); POTASSIUM 3.3 mmol/L (3.5-5.1)
--- NOTE | 2017-05-06 17:10 | NUR ---
PT CALLS FOR ASSIST WITH AMBULATION WITH QUAD CANE TO BATHROOM AND AMBULATES WITH SLOW STEADY GAIT AND ASSIST OF 1. PT DENIES PAIN AND CALLS FOR ASSIST WITH NEEDS. PT REMAINS ALERT AND ORIENTATED AND HOURLY ROUNDING CONTINUES.
[2017-05-06 20:36] VITALS: BP 151/90
--- NOTE | 2017-05-07 06:51 | NUR ---
ASSUMED CARES AT 1920. PT ALERT AND ORIENTED. IN GOOD SPIRITS. STAYED UP IN RECLINER UNTIL ALMOST MIDNIGHT. PERCOCET GIVEN FOR PAIN. TAKES PILLS WHOLE WITHOUT ISSUES. SLING TO LUE AND LLE AFO ON WHILE UP. HE IS A MIN ASSIST WITH GAIT BELT AND CANE. TAKES EXTRA TIME. DID HAVE LARGE SOFT BM. REFUSED COLACE AND MIRALAX. WEARS PULLUPS. USED URINAL AND STAFF EMPTIED. DID HAVE 1 EPISODE OF URINARY ACCIDENT. STAFF ASSISTED WITH ALL CARES AND CHANGING. PT TURNED TO SIDE DURING THE NIGHT. LEGS ELEVATED. CALL LIGHT IN REACH AND BED ALARM ON.
[2017-05-07 07:30] VITALS: BP 154/86
--- NOTE | 2017-05-07 17:35 | NUR ---
ASSUMMED CARE OF PT AT 0730, PT ALERT AND ORIENTED, PT STATES HE FEELS LAZY TODAY AND REFUSES TO GET OUT OF BED UNTIL LUNCHTIME, PT TRANSFERS WITH SBA GB AND CANE, PT VOIDS PER URINAL, AMBULATED TO TOILET AND HAD LARGE BM, PT REFUSED ANY BATHING GROOMING, STATES HE JUST WANTS SWEATPANTS ON, COMPLAINS OF KNOT IN HIS LEFT UPPER ARM, HARD ROUND AREA PALPABLE ON UPPER ARM, ICE PACK APPLIED PER PT REQUEST, PT ALSO COMPLAINS OF LEFT SIDE PAIN, MEDICATED PER ORDER, PT TALKING ON PHONE MUCH OF SHIFT, LEGS ELEVATED WHEN IN BED AND RECLINER, PT DID NOT HAVE THERAPY TODAY, HOURLY ROUNDING COMPLETED, ASSESSMENT COMPLETED, WILL CONTINUE TO MONITER.
--- NOTE | 2017-05-07 19:40 | NUR ---
PT SITTING UP IN RECLINER. PT'S 3 CHILDREN PLAYING AND EATING IN NON HOSPITAL BED THAT IS IN PT'S ROOM. ASKED PT WHERE THERE MOTHER WAS AND PT STATES HE WASN'T EVEN AWARE THAT THE MOTHER HAD LEFT. PT STATES HE WOUND TRY TO CONTACT THE MOTHER PER CELL. NURSE NURSING CARE PARTNER AND SECURITY NOTIFIED IN REGARDS TO THE 3 KIDS UNACCOMPANIED BY AN ADULT. ASKED PT'S PERMISSION TO LANCE CREWMEMBER THE ROGERS WITH THE 3 KIDS LONG ENOUGH FOR HIM TO HAVE HIS LEFT SHOULDER X-RAY DONE. PT STATES HE WAS OKAY WITH MY WATCHING THE KIDS LONG ENOUGH FOR HIM TO GET HIS X-RAY. DR. CASEY HERE ROUNDING.
[2017-05-07 21:15] VITALS: BP 151/82
[2017-05-08 04:13] LABS: HEMOGLOBIN 11.5 gm/dL (14.0-18.0); MCH 30.8 pg (26.0-34.0); MCV 93.6 fL (80.0-100.0); MPV 8.1 fl. (7.2-11.1); RBC 3.74 mil/uL (4.50-6.00); RDW-CV 13.1 % (10.5-14.5); WBC 5.3 thou/uL (4.0-11.0)
[2017-05-08 04:30] LABS: ALBUMIN 2.9 g/dL (3.4-5.0); CALCIUM 8.3 mg/dL (8.5-10.1); CREATININE 1.2 mg/dL (0.6-1.3); MAGNESIUM 1.9 mg/dL (1.8-2.4); TOTAL BILIRUBIN 0.3 mg/dL (<0.1-1.0); TOTAL PROTEIN 6.4 g/dL (6.4-8.2)
[2017-05-08 04:37] LABS: POTASSIUM 2.7 mmol/L (3.5-5.1)
--- NOTE | 2017-05-08 05:28 | NUR ---
RESTED QUIETLY. NO FURTHER C/O PAIN. NOTIFIED BY LAB OF CRITICAL K+ OF 2.7. POTASSIUM BEING REPLACED PER ELECTROLYTE PROTOCOL. INFORMED PT OF LOW K+ LEVEL. FIRST DOSE GIVEN AT 0500. HOURLY ROUNDING IN PROGRESS.
[2017-05-08 07:59] VITALS: BP 156/93
--- NOTE | 2017-05-08 16:07 | NUR ---
PT HAS BEEN UP TO RECLINER AND CALLS FOR ASSIST TO BATHROOM. PT AMBULATES WITH QUAD CANE AND MIN ASSIST OF 1 WITH GAITBELT.PT DENIES PAIN OR NAUSEA AND TOLERATES MEALS REQUESTING TO EAT IN ROOM FOR LUNCH. PT CONTINENT OF B+B. PT WEARS SLING TO LT ARM AND AFO TO LT LOWER LEG. PT REMAINS ALERT AND ORIENTATED AND CONTINUES TO PROGRESS TOWARDS GOALS, HOURLY ROUNDING CONTINUES.
[2017-05-08 20:23] VITALS: BP 169/89
--- NOTE | 2017-05-08 20:40 | NUR ---
PT WENT TO CT VIA W/C TO HAVE CT OF LEFT ARM DONE. TOOK MEDS WHOLE WITH WATER. PAIN PILL GIVEN FOR C/O LEFT ARM DISCOMFORT. TWO ORANGE JUICES PROVIDED PER REQUEST. PT DRANK AN ORANGE JUICE AT SHIFT CHANGE ALSO. DECLINED OFFER OF A SNACK. TRANSFERS WITH SBA, GAITBELT, QUAD CANE. IN GOOD SPIRITS TONIGHT. SMILING. GOOD SENSE OF HUMOR TONIGHT. URINAL AND CALL LIGHT WITHIN REACH.
--- NOTE | 2017-05-09 05:08 | NUR ---
RESTED ON/OFF. NO FURTHER C/O PAIN. USED URINAL X 3 DURING THE NIGHT. HOURLY ROUNDING IN PROGRESS.
[2017-05-09 08:00] VITALS: BP 181/96
--- NOTE | 2017-05-09 16:24 | NUR ---
ASSUMMED CARE OF PT AT 0730, PT ALERT AND ORIENTED, PT TRANSFERS WITH SBA, GB AND CANE, PT UP IN CHAIR MUCH OF SHIFT, COMPLAINS OF PAIN IN LEFT ARM, PALPABLE MASS STILL FELT IN LEFT UPPER ARM, ORTHO HERE TO SEE PT, MRI SCAN ORDERED, MEDICATED FOR PAIN ORDERED, PT TAKING FOOD AND FLUIDS WELL, PT PARTICIPATED IN ALL THERAPIES, HOURLY ROUNDING COMPLETED, ASSESSSMENT COMPLETE, WILL CONTINUE TO MONITER.
[2017-05-09 20:16] VITALS: BP 159/95
--- NOTE | 2017-05-09 20:45 | NUR ---
SITTING UP IN CHAIR WATCHING TV. PAIN MED GIVEN FOR C/O LEFT ARM. TOOK MEDS WHOLE ALL AT ONCE WITH WATER. AMBULATED TO THE BATHROOM WITH SBA, GAITBELT, BRACE TO LLE, QUADCANE. GAIT VERY SLOW AND SLIGHTLY UNSTEADY. DOES OWN HYGIENE AND CLOTHING ADJUSTMENTS.
--- NOTE | 2017-05-10 05:23 | NUR ---
AKILAH AUSTIN. USED URINAL X TWO. NO FURTHER C/O PAIN. HOURLY ROUNDING IN PROGRESS.
[2017-05-10 07:00] VITALS: BP 154/89
--- NOTE | 2017-05-10 14:41 | NUR ---
PEGGY called pt mother Clarita to follow up about dc planning as pt mother was to possibly return home today from [facility]. Pt mother did not answer so SW left a detailed message requesting a call back. SW to continue to follow and assist with safe dc planning.
--- NOTE | 2017-05-10 15:51 | NUR ---
pt has participated with therapies and continues to progress towards goals. pt calls for assist with transferrs with assist of 1, gaitbelt and quad cane. pt voids well but no bm today. pt given pl tylenol in am but denies pain through day. pt tolerates meals with peanutbutter and jelly sandwhich extra if he does not like food served. pt does call to dietary at times to order alternatives. pt remains alert and orientated and hourly rounding continues.
[2017-05-10 20:55] VITALS: BP 168/90
--- NOTE | 2017-05-11 02:04 | NUR ---
ASSUMED CARE @ 1999-05/10-.SITS ON RECLINER ON PHONE @ THIS TIME.SLING LUE IN PLACE.CHAIR ALARM ALREADY ON @ 1999.ASSISTED TO BED BY BOBBIN WASHER @ 2039.HOB UP. HEELS OFF BED & LUE UP ON A PILLOW @ 2039,BED ALARM PUT ON @ 2039.URINAL W/IN REACH.NURSE EMPTIES URINAL @ NIGHT.REFUSED TO TURN.ON HOURLY ROUNDS.BOBBIN WASHER DOING ODD HOUR ROUNDS.
[2017-05-11 04:56] LABS: HEMATOCRIT 36.9 % (42.0-52.0); HEMOGLOBIN 12.3 gm/dL (14.0-18.0); MCH 30.6 pg (26.0-34.0); MCHC 33.3 g/dL (28.0-37.0); MPV 7.5 fl. (7.2-11.1); RBC 4.02 mil/uL (4.50-6.00); RDW-CV 12.8 % (10.5-14.5); WBC 5.2 thou/uL (4.0-11.0)
[2017-05-11 05:26] LABS: CALCIUM 8.6 mg/dL (8.5-10.1); CREATININE 1.1 mg/dL (0.6-1.3); MAGNESIUM 1.9 mg/dL (1.8-2.4)
[2017-05-11 05:29] LABS: POTASSIUM 2.9 mmol/L (3.5-5.1)
--- NOTE | 2017-05-11 07:42 | NUR ---
SLEEPING SINCE 0000-05/11-TUE.USED URINAL X6.URINE ACCIDENT X1.TOOK ORANGE JUICE X3 HS SNACKS.PER PATIENT-DC ON FRIDAY 05/12.LAB CALLED @ 0530 FOR CRITICAL LEVEL SERUM K-2.9.[facility] ANSWERING [facility] CALLED @ 0541.2ND CALL PLACED @ 0600. RETURNED CALL @ 0602 & ORDERS GIVEN.FIRST DOSE KCL 40 MEQ TABS GIVEN ORAL @ 0652.2ND DOSE TO GIVE @ 0800.THEN,REPEAT SERUM K LEVEL 05/12-TUESDAY. REFUSED TO TURN DURING NIGHT.
[2017-05-11 08:12] VITALS: BP 159/94
[2017-05-11] MEDS ORDERED: HYDROCHLOROTHIA25 M1 PO (14:23)
[2017-05-11] MEDS ORDERED: SERTRALINE HCL50 MG PO (14:23)
--- NOTE | 2017-05-11 16:20 | NUR ---
SW met with pt to review team conference summary. Plan for pt to dc home with mother on . nurse services to follow; pt in agreement with plan. Pt aunt available to provide ride home for pt. SW to continue to follow to assist with finalizing safe dc planning.
[2017-05-11 19:30] VITALS: BP 134/82
--- NOTE | 2017-05-11 20:45 | NUR ---
SITTING UP IN RECLINER. AMBULATED TO THE BATHROOM WITH SBA, GAITBELT, QUAD CANE LLE BRACE. GAIT SLOW, SLIGHTLY UNSTEADY. DOES OWN HYGIENE AND CLOTHING ADJUSTMENTS. TOOK MEDS WHOLE WITH WATER. PAIN MED GIVEN FOR C/O LEFT ARM AND LEFT LEG PAIN.
[2017-05-11] MEDS ORDERED: COLACE100 MG PO (22:39)
[2017-05-11] MEDS ORDERED: MIRALAX17 GM PO (22:44)
[2017-05-11 22:45] VITALS: BP 134/82; BP 144/83
--- NOTE | 2017-05-12 05:30 | NUR ---
USED URINAL X 3 DURING THE NIGHT. AM K+ 3.1. WILL GIVE FIRST DOES OF K+ REPLACEMENT PER ELECTROLYTE PROTOCOL. PT TO BE DISCHARGED TO HOME TODAY WITH HOME HEALTH. HOURLY ROUNDING IN PROGRESS.
[2017-05-12 07:54] VITALS: BP 144/83
--- NOTE | 2017-05-12 10:10 | NUR ---
PEGGY received message from nurse to call pt mother at pt request as well. PEGGY spoke with pt mother Clarita who informed PEGGY that the [facility], Dr Arredondo's office would need medical records as pt has an appt with Dr Arredondo on May 19. PEGGY faxed records with pt consent and request. Pt to dc home today and pt/family preference for [facility] services to follow. PEGGY called [facility] and provided referral, faxed referral and orders to [facility] and they accepted referral. Pt aunt to be here at Noon to provide pt ride home.
[2017-05-12 10:18] VITALS: BP 144/83
--- NOTE | 2017-05-12 13:31 | NUR ---
WOUND NURSE: PATIENT ASSESSED FOR POTENTIAL LESIONS ON THE LUE; HOWEVER, THERE ARE NO LESIONS OBSERVED. PATIENT PRESENTS WITH HEALED INTACT SCARS. NO FURTHER INTERVENTION IS INDICATED AT THIS TIME. PATIENT BEING DISCHARGED FROM FACILITY TDAY.
--- NOTE | 2017-05-17 15:43 | H ---
[place] [address] HISTORY AND PHYSICAL Name: ELIDA CORREA Room: [address]#: [id number] Admission: 04/18/17 Attend Phys: Christina Soler DO Discharge: 05/12/17 Date of : 72 Report #: [id number] THIS REPORT FOR: //name// CC: Lupillo Soler DATE OF SERVICE: 04/18/2017 HISTORY OF PRESENT ILLNESS: This is a 46-year-old male, known from previous consultation on acute unit who presented on 04/12/2017, with rhabdomyolysis after having been found down at the home for about 24 hours in the bathroom, landing on to the left side, was unable to get up due to his previous history of cerebrovascular accident as well as left upper and lower extremity hemiparesis. He does reside with his mother who was also apparently found down as well and is also being hospitalized. Ten years ago, he did have a cerebrovascular accident with significant residual left upper and lower extremity hemiparesis. X-rays and workup did not show any fractures, but there was a large glenohumeral joint effusion and some left upper extremity swelling. No significant changes since the preadmission screening. Previous level of function was modified independent to minimum assistance. Current level of function is minimum to maximum assistance of 1-2 depending on therapy, activity, and time of day, does have mild impairment of comprehension, expression, interaction, problem solving and memory. Estimated length of stay is 16-18 days with discharge disposition to the home setting. PAST MEDICAL HISTORY: Hypertension, previous history of cerebrovascular accident, previous history of residual left hemiparesis, chronic kidney disease, dehydration, anemia, left upper extremity flaccidity, residual cognitive deficits, hypokalemia, hemiparesis, otitis media, and pharyngitis. PAST SURGICAL HISTORY: Cardiac cath. ALLERGIES: HYDROCODONE, COCONUT and PINEAPPLE. MEDICATIONS: Reviewed, reconciled and are available in the MAR. SOCIAL HISTORY: Unchanged. FAMILY HISTORY: Unchanged. REVIEW OF SYSTEMS: A 14-point review of systems is done and is negative except as mentioned in HPI, specifically no fever, chest pain, shortness of breath, abdominal pain, or distention. PHYSICAL EXAMINATION: GENERAL: Alert, oriented, [place] [address] HISTORY AND PHYSICAL Name: ELIDA CORREA Room: [address]#: [id number] Admission: 04/18/17 Attend Phys: Christina Soler DO Discharge: 05/12/17 Date of : 72 Report #: [id number] VITAL SIGNS: Reviewed and are stable. HEENT: Head atraumatic, normocephalic. Pupils are equal, round, and reactive. ABDOMEN: Soft, nontender, and nondistended. EXTREMITIES: Left upper extremity is flaccid and is in a sling at this time. Left lower extremity does show some weakness with a left AFO custom in place. There is no significant right upper or lower extremity deficits with 5/5 strength in both. SKIN: Warm and dry. There are some lesions on the lower extremity and some swelling in the left upper extremity. ASSESSMENT: 1. Status post fall with rhabdomyolysis. 2. History of previous cerebrovascular accident with residual left upper and lower extremity hemiparesis with left upper extremity being flaccid. 3. Multiple medical comorbidities. PLAN: 1. Admission to inpatient rehabilitation. 2. Plan of care is pending. 3. PT, OT, speech, language, case management, nursing and HIMS to make evaluations and recommendations. 4. Plan of care is pending. We will team him weekly. <ELECTRONICALLY SIGNED> By: Christina Soler DO 05/17/17 1543 [id number] [id number] Soler DO /nt
--- NOTE | 2017-05-17 15:43 | PLAN ---
[facility] [address] [place] [address] REHAB UNIT PLAN OF CARE Name: ELIDA CORREA Room: [address]#: [id number] Admission: 04/18/17 Attend Phys: Christina Soler DO Discharge: 05/12/17 Date of : 72 Report #: [id number] THIS REPORT FOR: //name// CC: Lupillo Soler This is a 46-year-old male admitted to inpatient rehabilitation to facilitate safe discharge home, status post fall in his home in the bathroom, landing on to the left side with a previous history of cerebrovascular accident with flaccid left upper extremity and hemiparesis in the left lower extremity, which made it impossible for him to get up. MEDICAL PROGNOSIS: Good. REHABILITATION PROGNOSIS: Good. Previous level of function is modified independent to minimum assistance depending on therapy, activity and time of day. Current level of function is minimum to maximum assistance of 1-2 depending on therapy, activity and time of day, does have some mild cognitive impairment, requiring speech language pathology. Estimated length of stay is 16-18 days with discharge disposition to the home setting where he has supportive family. Physical therapy will see the patient 60-90 minutes per day, 5 days per week, working on upper and lower body strength, balance, coordination, navigation. Occupational therapy will work with the patient 60-90 minutes per day, 5 days per week, working on upper and lower body strength, balance, coordination, navigation, bathing, dressing, and toileting. Speech language pathology will work with the patient 30-90 minutes per day on comprehension, expression, interaction, problem solving, and memory. This is an overall plan of care, may change from time to time. We will team weekly and make changes to plan of care as needed. <ELECTRONICALLY SIGNED> By: Christina Soler DO 05/17/17 1543 1603 [id number] Soler DO /nt
== END 2017-05-12 13:54 | disposition home health service (06) | DRG 557 ==
LOC: M.REH 16:15
PROVIDERS: Family Medicine; Internal Medicine; ADMIT Physical Medicine & Rehabilitation
DX: M62.82 Rhabdomyolysis (principal); G93.40 Encephalopathy, unspecified; I69.354 Hemiplegia and hemiparesis following cerebral infarction affecting left non-dominant side; I12.9 Hypertensive chronic kidney disease with stage 1 through stage 4 chronic kidney disease, or unspecified chronic kidney disease; N18.9 Chronic kidney disease, unspecified; M81.0 Age-related osteoporosis without current pathological fracture; E87.6 Hypokalemia; S43.002A Unspecified subluxation of left shoulder joint, initial encounter; W18.39XA Other fall on same level, initial encounter; Y93.89 Activity, other specified; Z91.19 Patient's noncompliance with other medical treatment and regimen; Z88.6 Allergy status to analgesic agent; Z91.018 Allergy to other foods; Y92.89 Other specified places as the place of occurrence of the external cause; Y99.8 Other external cause status

== ENCOUNTER → 2017-08-22 | Outpatient (CLI) | payer OTHER ==
[~2017-08-22] MED LIST changes: +COLACE100 MG PO; +MIRALAX17 GM PO; +SERTRALINE HCL50 MG PO
== END ==
LOC: M.RAD 08-10 14:37
DX: N63.10 Unspecified lump in the right breast, unspecified quadrant (principal); N64.9 Disorder of breast, unspecified

== ENCOUNTER 2018-06-08 22:00 | Emergency (ER) | payer OTHER ==
[~2018-06-08] VITALS: Ht 185.4 cm; Wt 90.1 kg
[2018-06-08 22:54] LABS: INFLUENZA A ANTIGEN None Detected (None Detect); INFLUENZA B ANTIGEN None Detected (None Detect)
[2018-06-08] MEDS ORDERED: FLONASE 0.05%50 MCG NASAL (22:56)
[2018-06-08] MEDS ORDERED: ROBAXIN500 MG PO (23:00)
[2018-06-08 23:20] VITALS: BP 158/90
== END 2018-06-08 23:20 | disposition home or self-care (01) ==
LOC: M.ERS 22:00
PROVIDERS: Nurse Practitioner Family
DX: H61.22 Impacted cerumen, left ear (principal); B34.9 Viral infection, unspecified; R09.81 Nasal congestion; I10 Essential (primary) hypertension; Z91.018 Allergy to other foods; Z88.8 Allergy status to other drugs, medicaments and biological substances; Z86.73 Personal history of transient ischemic attack (TIA), and cerebral infarction without residual deficits

== ENCOUNTER 2018-09-29 02:13 | Emergency (ER) | payer MEDICARE ==
[~2018-09-29] VITALS: Ht 182.9 cm; Wt 90.7 kg
[~2018-09-29 02:13] MED LIST changes: +FLONASE 0.05%50 MCG NASAL
[2018-09-29 02:54] LABS: ABSOLUTE EOSINOPHILS 0.1 thou/uL (0.0-0.7); ABSOLUTE LYMPHOCYTES 1.8 thou/uL (0.8-5.3); ABSOLUTE MONOCYTES 0.5 thou/uL (0.0-1.2); ABSOLUTE NEUTROPHILS 3.5 thou/uL (1.6-8.1); BASOPHILS 0.6 %; EOSINOPHILS 2.3 %; HEMATOCRIT 39.9 % (42.0-52.0); HEMOGLOBIN 13.4 gm/dL (14.0-18.0); LYMPHOCYTES 30.1 %; MCH 31.3 pg (26.0-34.0); MCHC 33.5 g/dL (28.0-37.0); MCV 93.4 fL (80.0-100.0); MONOCYTES 8.2 %; MPV 8.5 fl. (7.2-11.1); NUCLEATED RBCS 0 /100WBC; PLATELET COUNT* 214 thou/uL (150-400); POLYS 58.8 %; RBC 4.28 mil/uL (4.50-6.00); RDW-CV 13.1 % (10.5-14.5); WBC 5.9 thou/uL (4.0-11.0)
[2018-09-29 03:02] LABS: ANION GAP 8 mmol/L (7-16); BUN 20 mg/dL (7-18); CALCIUM 9.5 mg/dL (8.5-10.1); CHLORIDE 106 mmol/L (98-107); CO2 30 mmol/L (21-32); CREATININE 1.6 mg/dL (0.6-1.3); GLUCOSE 81 mg/dL (70-99); POTASSIUM 3.2 mmol/L (3.5-5.1); SODIUM 144 mmol/L (136-145)
[2018-09-29 03:11] LABS: ALBUMIN 3.8 g/dL (3.4-5.0); ALKALINE PHOSPHATASE 121 U/L (46-116); LIPASE 115 U/L (73-393); SGOT 13 U/L (15-37); SGPT 19 U/L (30-65); TOTAL BILIRUBIN 0.5 mg/dL (<0.1-1.0); TOTAL PROTEIN 8.2 g/dL (6.4-8.2); TROPONIN-I LEVEL <0.06 ng/mL (<0.06)
[2018-09-29] MEDS ORDERED: CIPRO500 MG PO (03:29)
[2018-09-29] MEDS ORDERED: ZOFRAN ODT4 MG DISSOLVE (03:29)
[2018-09-29] MEDS ORDERED: BENTYL 20 MG TA20 M1 PO (03:29)
[2018-09-29 04:00] VITALS: BP 138/70
--- NOTE | 2018-09-29 11:18 | EKG ---
[place] [address] ELECTROCARDIOGRAM REPORT Name: ELIDA CORREA Room: [facility]#: [id number] Admission: 09/29/18 Attend Phys: Discharge: 09/29/18 Date of : 72 Report #: [id number] THIS REPORT FOR: //name// [facility] ED Test Date: 2018-09-29 Test Time: 03:02:02 Pat Name: ELIDA CORREA Department: Room: Gender: M Upper Extremity Surgeon: : 1970 Requested By: Luis Chavez Order Number: [id number] MD: Kuldip Leger Measurements Intervals [place] Rate: 58 P: 3 MO: 191 QRS: -42 QRSD: 108 T: 59 QT: 455 QTc: 447 Interpretive Statements Sinus rhythm Left anterior fascicular block Left ventricular hypertrophy Compared to ECG 11/06/2012 08:07:36 ST (T wave) deviation no longer present Possible ischemia no longer present Prolonged QT interval no longer present Electronically Signed On 09-29-2018 11:18:01 CDT by Kuldip Leger [email or web address] <ELECTRONICALLY SIGNED> By: Kuldip Leger MD, [facility] 09/29/18 1118 [id number] [id number] Kuldip Leger MD, [facility] /EPI
== END 2018-09-29 04:00 | disposition home or self-care (01) ==
LOC: M.ERS 02:13
PROVIDERS: Emergency Medicine Emergency Medical Services
DX: R19.7 Diarrhea, unspecified (principal); I10 Essential (primary) hypertension; Z91.018 Allergy to other foods; Z88.8 Allergy status to other drugs, medicaments and biological substances; Z86.73 Personal history of transient ischemic attack (TIA), and cerebral infarction without residual deficits

== ENCOUNTER 2018-11-17 23:18 | Emergency (ER) | payer MEDICARE ==
[~2018-11-17] VITALS: Ht 185.4 cm; Wt 94.9 kg
[~2018-11-17 23:18] MED LIST changes: +BENTYL 20 MG TA20 M1 PO; +CIPRO500 MG PO; +ZOFRAN ODT4 MG DISSOLVE
[2018-11-18 00:05] LABS: ABSOLUTE EOSINOPHILS 0.1 thou/uL (0.0-0.7); ABSOLUTE MONOCYTES 0.5 thou/uL (0.0-1.2); ABSOLUTE NEUTROPHILS 2.7 thou/uL (1.6-8.1); BASOPHILS 0.7 %; EOSINOPHILS 2.7 %; HEMATOCRIT 39.2 % (42.0-52.0); LYMPHOCYTES 37.6 %; MCH 30.9 pg (26.0-34.0); MCHC 33.1 g/dL (28.0-37.0); MCV 93.6 fL (80.0-100.0); MONOCYTES 8.5 %; MPV 8.2 fl. (7.2-11.1); NUCLEATED RBCS 0 /100WBC; PLATELET COUNT* 204 thou/uL (150-400); POLYS 50.5 %; RBC 4.19 mil/uL (4.50-6.00); RDW-CV 13.2 % (10.5-14.5); WBC 5.4 thou/uL (4.0-11.0)
[2018-11-18 00:12] LABS: ANION GAP 8 mmol/L (7-16); BUN 13 mg/dL (7-18); CALCIUM 9.2 mg/dL (8.5-10.1); CHLORIDE 108 mmol/L (98-107); CO2 32 mmol/L (21-32); CREATININE 1.1 mg/dL (0.6-1.3); GLUCOSE 130 mg/dL (70-99); POTASSIUM 3.1 mmol/L (3.5-5.1); SODIUM 148 mmol/L (136-145)
[2018-11-18 00:23] LABS: ALBUMIN 3.4 g/dL (3.4-5.0); ALKALINE PHOSPHATASE 124 U/L (46-116); NT-PRO BRAIN NAT PEPTIDE 99 pg/mL (<300); SGOT 15 U/L (15-37); SGPT 18 U/L (30-65); TOTAL BILIRUBIN 0.5 mg/dL (<0.1-1.0); TOTAL PROTEIN 7.6 g/dL (6.4-8.2); TROPONIN-I LEVEL <0.06 ng/mL (<0.06)
[2018-11-18 00:38] LABS: PROTIME 10.5 Seconds (9.20-11.50)
[2018-11-18] MEDS ORDERED: LASIX 40 MG TAB40 M2 PO (01:29)
[2018-11-18 01:46] VITALS: BP 153/89
--- NOTE | 2018-11-20 12:18 | EKG ---
[place] [address] ELECTROCARDIOGRAM REPORT Name: ELIDA CORREA Room: [facility]#: [id number] Admission: 11/17/18 Attend Phys: Discharge: 11/18/18 Date of : 72 Report #: [id number] THIS REPORT FOR: //name// [facility] ED Test Date: 2018-11-18 Test Time: 00:00:47 Pat Name: ELIDA CORREA Department: Room: Gender: M Steel Spar Operator: GRIFFIN : 1970 Requested By: Linda Dinero Order Number: [id number] MD: Kilo Giraldo Measurements Intervals [place] Rate: 61 P: -9 NH: 193 QRS: -48 QRSD: 109 T: 85 QT: 449 QTc: 453 Interpretive Statements Sinus rhythm Left anterior fascicular block Left ventricular hypertrophy Anterior Q waves, possibly due to LVH Compared to ECG 09/29/2018 03:02:02 Q waves now present Electronically Signed On 11-20-2018 12:18:15 CDT by Kilo Giraldo [email or web address] <ELECTRONICALLY SIGNED> By: Kilo Giraldo MD, [facility] 11/20/18 1218 0000 0000 Kilo Giraldo MD, [facility] /EPI
== END 2018-11-18 01:41 | disposition home or self-care (01) ==
LOC: M.ERS 23:18
PROVIDERS: Emergency Medicine
DX: R60.0 Localized edema (principal); E87.6 Hypokalemia; I10 Essential (primary) hypertension; Z88.5 Allergy status to narcotic agent